=== PATIENT | male | born 1985 | race Caucasian/White ===

== ENCOUNTER → 2019-07-23 10:41 | Outpatient (CLI) | payer OTHER, SELFPAY ==
--- NOTE | 2019-07-23 10:48 | XR_ITS ---
PROCEDURE: XR CHEST 2V CLINICAL HISTORY: BRONCHOPNEUMONIA Bronchopneumonia, cough COMPARISON: No exams were available for comparison FINDINGS: The cardiomediastinal silhouette and pulmonary vascularity are within normal limits. The lungs are clear without infiltrates, suspicious nodules, or pleural effusions. No acute bony abnormalities. IMPRESSION: No acute findings. Dictated by: Pernell Virk MD 07/23/2019 14:43 Electronically signed by Pernell Virk MD in [place] 07/23/2019 14:43
[2019-07-23 11:26] LABS: Basophils % 1.5 % (0.1-2.0); Eosinophils % 1.5 % (0.1-12.0); Hematocrit 45.4 % (42.0-52.0); Hemoglobin 15.1 g/dL (14.1-18.0); Lymphocytes # 0.9 K/mm3 (0.7-4.5); Mean Corpuscular HGB Conc 33.3 g/dL (31.8-35.4); Mean Corpuscular Hemoglobin 28.1 pg (27.0-31.2); Mean Corpuscular Volume 84.4 fl (80-94); Monocytes # 0.2 K/mm3 (0.1-1.0); Monocytes % 8.7 % (1.7-9.3); Neutrophils # 1.5 K/mm3 (1.8-7.8); Neutrophils % 54.3 % (37.0-80.0); Platelet Count 153 K/mm3 (142-424); Red Blood Count 5.38 M/mm3 (4.60-6.20); Red Cell Distribution Width 12.9 % (11.5-17.5); White Blood Count 2.8 K/mm3 (4.8-10.8)
[2019-07-23 12:57] LABS: Alanine Aminotransferase 136 U/L (12-78); Albumin Level 4.1 gm/dL (3.4-5.0); Albumin/Globulin Ratio 1.3 (1.1-1.8); Alkaline Phosphatase 96 U/L (46-116); Anion Gap 12.9 mEq/L (5-15); Aspartate Amino Transferase 75 U/L (15-37); Bilirubin,Total 0.5 mg/dL (0.2-1.0); Blood Urea Nitrogen 16 mg/dL (7-18); Calcium 8.5 mg/dL (8.5-10.1); Carbon Dioxide 29 mmol/L (21.0-32.0); Chloride 103 mmol/L (98-107); Creatinine,Serum 1.22 mg/dL (0.70-1.30); Estimated Glomerular Filt Rate 69 ml/min (>60); GFR (African American) 83 ML/MIN (>60); Globulin 3.2 gm/dl (1.3-3.2); Glucose 87 mg/dL (74-106); Potassium 3.9 mmoL/L (3.5-5.1); Sodium 141 mmol/L (136-145); Total Protein,Serum 7.3 gm/dL (6.4-8.2)
== END ==
PROVIDERS: PCP Internal Medicine Adolescent Medicine; Visit Provider Internal Medicine Adolescent Medicine
DX: J18.0 Bronchopneumonia, unspecified organism (principal); R05 Cough
CPT/HCPCS: 36415; 71046; 80053; 85025; 87040

== ENCOUNTER → 2020-11-11 10:20 | Outpatient (CLI) | payer OTHER, SELFPAY ==
[2020-11-11 14:28] LABS: Alanine Aminotransferase 52 U/L (12-78); Albumin Level 4.7 g/dl (3.5-5.0); Alkaline Phosphatase 59 U/L (38-126); Anion Gap 11.5 mEq/L (5-15); Aspartate Amino Transferase 40 U/L (17-59); Bilirubin,Total 0.5 mg/dl (0.2-1.3); Blood Urea Nitrogen 15 mg/dl (9-20); Calcium 9.6 mg/dl (8.4-10.2); Carbon Dioxide 27 mmol/L (22.0-30.0); Chloride 105 mmol/L (98-107); Cholesterol 210 mg/dl (140-200); Estimated Glomerular Filt Rate 86 ml/min (>60); GFR (African American) 104 ML/MIN (>60); Globulin 2.4 g/dL (1.3-3.2); Glucose 91 mg/dl (74-100); HDL Cholesterol 53 mg/dl (40-60); Potassium 4.5 mmoL/L (3.5-5.1); Sodium 139 mmol/L (136-145); Total Protein,Serum 7.1 g/dl (6.3-8.2); Triglycerides 58 mg/dl (30-150); VLDL Cholesterol 12 mg/dL (0-40)
[2020-11-11 14:30] LABS: Basophils # 0.1 K/mm3 (0-0.2); Basophils % 0.9 % (0.1-2.0); Eosinophils # 0.1 K/mm3 (0.0-0.4); Hemoglobin 14.8 g/dL (14.1-18.0); Lymphocytes # 1.7 K/mm3 (0.7-4.5); Lymphocytes % 32.6 % (10-50); Mean Corpuscular HGB Conc 32.8 g/dL (31.8-35.4); Mean Corpuscular Hemoglobin 28.4 pg (27.0-31.2); Mean Corpuscular Volume 86.4 fl (80-94); Mean Platelet Volume 9.4 fl (7.4-10.4); Monocytes # 0.4 K/mm3 (0.1-1.0); Neutrophils # 2.9 K/mm3 (1.8-7.8); Neutrophils % 57.4 % (37.0-80.0); Platelet Count 201 K/mm3 (142-424); Red Cell Distribution Width 13.1 % (11.5-17.5); White Blood Count 5.1 K/mm3 (4.8-10.8)
[2020-11-11 14:39] LABS: Direct LDL Cholesterol 118.37 mg/dL (100-129)
[2020-11-11 14:46] LABS: 25-OH Vitamin D, Total 36.1 ng/mL (30-100)
[2020-11-11 14:58] LABS: Thyroid Stimulating Hormone 0.78 uIU/mL (0.465-4.68)
[2020-11-11 15:17] LABS: Vitamin B12 563 pg/mL (239-931)
[2020-11-12 08:43] LABS: Testosterone,Total 509 ng/dL (264-916)
== END ==
PROVIDERS: Visit Provider Nurse Practitioner Family
DX: Z00.00 Encounter for general adult medical examination without abnormal findings (principal); R53.83 Other fatigue
CPT/HCPCS: 36415; 80053; 80061; 82306; 82607; 84403; 84443; 85025

== ENCOUNTER → 2020-11-18 13:05 | Outpatient (CLI) | payer OTHER, SELFPAY | PROVIDERS: PCP Internal Medicine Adolescent Medicine; Visit Provider Internal Medicine Adolescent Medicine | DX: G47.30 Sleep apnea, unspecified (principal); R40.0 Somnolence; R51.9 Headache, unspecified; R06.83 Snoring | CPT/HCPCS: G0399 ==

== ENCOUNTER 2021-02-23 19:01 | Emergency (ER) | payer OTHER, SELFPAY ==
[2021-02-23 19:56] VITALS: BP 135/88; PULSE 68; RESP 17; TEMP 36.7; O2SAT 100; BMI 29.7
--- NOTE | 2021-02-23 20:23 | HMH.EDUTC ---
[facility] [place] Clinical Impression: Laceration of left thumb Qualifiers: Encounter type: initial encounter Damage to nail status: without damage Foreign body presence: without foreign body Qualified Code(s): S61.012A - Laceration without foreign body of left thumb without damage to nail, initial encounter Disposition: Home, Self-Care Condition on Discharge: Good Instructions: How to Care for a Laceration After Repair, DI for Laceration Repair Additional Instructions: Keep the wound clean and dry. Keep a dressing on it if you are going to be getting it dirty. Watch the for signs of infection, such as redness, swelling, drainage, fever. etc. Take tylenol or ibuprofen for pain. Follow up with her regular doctor. Return in 10 to 12 days to have the sutures removed. GO TO THE ER FOR ANY WORSENING SYMPTOMS OR CONCERNS. Referrals: Blaine Raya MD [Primary Care Provider] - Time of Disposition: 21:19 Medical Decision Making - Medical Records Medical records reviewed: No: I reviewed the patient's medical records. - [place] Inquiry Pt receiving controlled substance: No Vital Signs: 02/23/21 19:56 02/23/21 20:53 Temperature 98.1 F 98.1 F Temperature Source Oral Pulse Rate 68 Pulse Rate [Left] 68 Respiratory Rate 17 17 Blood Pressure 135/88 Blood Pressure [Right Arm] 135/88 Blood Pressure Mean [Right Arm] 103 02 Sat by Pulse Oximetry 100 Orders (Tests/Meds): ED MEDICATIONS Discontinued Medications Generic Name Dose Route Start Last Admin Trade Name Freq PRN Reason Stop Dose Admin Tetanus/Reduced Diphtheria/Acell Pertussis 0.5 ml 02/23/21 20:25 02/23/21 20:50 Tet/Diphth/Pert-Adult 0.5ml Syringe IM 02/23/21 20:26 0.5 ml .ONCE ONE Administration [facility] [place] - General Stated complaint: lt thumb lac Time Seen by Provider: 02/23/21 20:23 Mode of Arrival: Ambulatory Source of Information: Patient Limitations: No Limitations Description of Symptoms (Recalled from Triage Doc. 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 He has a laceration on the lateral aspect of his left thumb. He is able to move his thumb well. He has good sensation of the distal area of is thumb. - Related Data Allergies Allergy/AdvReac Type Severity Reaction Status Date / Time Penicillins Allergy Unknown Verified 02/23/21 19:59 - Worker's Comp Is this a Worker's Comp case?: No [facility] History - Hepatitis A Screen Drug use history?: No High risk sexual behaviors?: No History of sexually transmitted infection?: No Currently employed?: No Childcare worker?: No Do you have indoor plumbing?: Yes Do you have electricity?: Yes Attestation statement:: This patient has been screened for Hepatitis A risk factors. I have reviewed the patient's past medical history: Yes ROS Obtained: Yes All systems reviewed & no additional complaints - Constitutional Constitutional: Denies chills, Denies fever(s) - Integumentary/Breasts Skin/Breast: Reports as per HPI - Neurologic Neurologic: Denies tingling/numbness/burning sensations Physical Exam - General General appearance: alert, in no apparent distress - Head Head exam: atraumatic, normocephalic, normal inspection - Eye Eye exam: Present: normal appearance, PERRL, EOMI - ENT ENT exam: Present: normal exam, normal oropharynx, mucous membranes moist, TM's normal bilaterally, normal external ear exam - Neck Neck exam: Present: normal inspection, full ROM, trachea midline. Absent: meningismus, lymphadenopathy - Chest Chest inspection: Present: normal inspection, sym
[2021-02-23 20:53] VITALS: BP 135/88; PULSE 68; RESP 17; TEMP 36.7; O2SAT 100
== END 2021-02-23 21:28 | disposition home or self-care (01) ==
PROVIDERS: Emergency Provider Nurse Practitioner Family; PCP Internal Medicine Adolescent Medicine
DX: S61.012A Laceration without foreign body of left thumb without damage to nail, initial encounter (principal); Z23 Encounter for immunization; W26.0XXA Contact with knife, initial encounter; Y92.019 Unspecified place in single-family (private) house as the place of occurrence of the external cause; Z88.0 Allergy status to penicillin
CPT/HCPCS: 12001; 90471; 90715; 99202; G0463

== ENCOUNTER 2021-03-28 10:00 | Emergency (ER) | payer OTHER, SELFPAY ==
[2021-03-28 10:23] VITALS: PULSE 52; RESP 18; TEMP 36.8; O2SAT 97; BMI 28.1
[2021-03-28 10:25] VITALS: BP 121/76; PULSE 52; RESP 18; TEMP 36.8
--- NOTE | 2021-03-28 10:42 | HMH.EDUTC ---
[facility] [place] Clinical Impression: Exposure to COVID-19 virus Disposition: Home, Self-Care Condition on Discharge: Good Instructions: Preventing the Spread of Coronavirus Discharge Instructions Additional Instructions: You have been tested for COVID19. Please continue to isolate. Your test results will be available on patient portal when complete. Referrals: Blaine Raya MD [Primary Care Provider] - Forms: Work/School Release Time of Disposition: 10:52 Medical Decision Making - [place] Inquiry Pt receiving controlled substance: No Vital Signs: 03/28/21 10:23 03/28/21 10:25 Temperature 98.3 F 98.3 F Temperature Source Oral Pulse Rate 52 L Pulse Rate [Left] 52 L Respiratory Rate 18 18 Blood Pressure 121/76 02 Sat by Pulse Oximetry 97 Orders (Tests/Meds): ORDERS Category Date Time Status Covid-19 Nasal PCR ([facility]) Routine Lab 03/28/21 10:20 Received [facility] [place] - General Stated complaint: covid test/symptoms Time Seen by Provider: 03/28/21 10:43 Mode of Arrival: Ambulatory Source of Information: Patient Limitations: No Limitations Description of Symptoms (Recalled from Triage Doc. by RN): pt c/o fever and body aches. pts son is positive for covid. HEENT Symptoms (Recalled from RN notes): No Resp Symptoms (Recalled from RN notes): No Skin Symptoms (Recalled from RN notes): No MS Symptoms (Recalled from RN notes): No Functional Status (Recalled from RN notes): fever hx and body aches - History of Present Illness Provider Complaint: Patient has had fever, body aches, cough X 2-3 days. Son tested positive for COVID 6 days ago. Onset (ago): day(s) (3) Relieving factors: none Exacerbating factors: none Associated symptoms: cough, fever/chills Treatments prior to arrival: none - Related Data Allergies Allergy/AdvReac Type Severity Reaction Status Date / Time Penicillins Allergy Unknown Verified 02/23/21 19:59 - Worker's Comp Is this a Worker's Comp case?: No [facility] History - Hepatitis A Screen Drug use history?: No High risk sexual behaviors?: No History of sexually transmitted infection?: No Currently employed?: No Childcare worker?: No Do you have indoor plumbing?: Yes Do you have electricity?: Yes Attestation statement:: This patient has been screened for Hepatitis A risk factors. I have reviewed the patient's past medical history: Yes ROS Obtained: Yes All systems reviewed & no additional complaints - Constitutional Constitutional: Reports body ache, Reports chills, Reports fever(s) - Respiratory Respiratory: Reports cough Physical Exam - General General appearance: alert, in no apparent distress - Head Head exam: normocephalic - Eye Eye exam: Present: PERRL - ENT ENT exam: Present: normal oropharynx, TM's normal bilaterally - Neck Neck exam: Present: normal inspection. Absent: lymphadenopathy - Chest Chest inspection: Present: normal inspection, symmetric chest wall rise - Respiratory Respiratory exam: Present: normal lung sounds bilaterally - Cardiovascular Cardiovascular exam: Present: regular rate, normal rhythm - Neurological Exam Neurological exam: Present: alert, oriented X3 - Psychiatric Psychiatric exam: Present: normal affect, normal mood - Skin Skin exam: Present: warm, dry, intact
--- NOTE | 2021-03-29 09:34 | PC.NURSE ---
Notified pt of positive COVID results
== END 2021-03-28 10:59 | disposition home or self-care (01) ==
PROVIDERS: Emergency Provider Physician Assistant; PCP Internal Medicine Adolescent Medicine
DX: U07.1 COVID-19 (principal); Z88.0 Allergy status to penicillin
CPT/HCPCS: 99202; C9803; G0463; U0003; U0005

== ENCOUNTER 2024-11-09 14:26 | Emergency (ER) | payer OTHER, SELFPAY ==
[2024-11-09 14:32] VITALS: BP 146/100; PULSE 77; O2SAT 99
[2024-11-09 14:34] VITALS: BP 146/100; PULSE 88; RESP 18; TEMP 36.6; O2SAT 99; BMI 30.5
[2024-11-09] MEDS: ACETAMINOPHEN 500MG TAB 1000 MG PO (14:50)
[2024-11-09] MEDS: IBUPROFEN 600 MG TABLET PO (14:50)
[2024-11-09 15:00] VITALS: BP 142/93; PULSE 82; O2SAT 96
--- NOTE | 2024-11-09 15:21 | ED_ITS ---
<Statement entered by Alta Ramirez MD - 11/09/24 15:31> I was consulted by the LIAM, and we discussed the complexity of the problems being addressed. I approved the treatment and management plan for this patient's care in the emergency department, thus performing a substantive portion of the medical decision making. Alta Ramirez MD, JELANI, FACEP Discharge Plan Disposition Patient Disposition: Home, Self-Care Condition: Good Referrals Follow up/Referrals: Provider,Referral, MD [Primary Care Provider] - See instructions Activity Restrictions/Add. Instructions Additional Instructions/Restrictions: Have sutures removed in 5 to 7 days. Keep clean with soap and water. If any concerns or questions please return to the ED or PCP. Clinical Impressions Clinical Impression: Laceration Instructions Patient Instructions: DI for Laceration Repair Print Language Print Language: Setswana Discharge ED Provider: Alta Ramirez General Adult HPI General Chief complaint: Wound/Laceration Stated complaint: AO 11/09/24 01:45 Busted Lip Time Seen by Provider: 11/09/24 14:48 Mode of Arrival: Ambulatory Source of Information: Patient Description of Symptoms (Recalled from ER Triage Doc. by RN): FALL FROM LADDER, LACERATION TO UPPER LIP. History of Present Illness HPI narrative: This is a 39-year-old male presents to the ED today for complaint of lip laceration after falling into his ladder. He is up-to-date on tetanus. He had it within 3 years. He has no other injuries at this time. Related Data Allergies Allergy/AdvReac Type Severity Reaction Status Date / Time Penicillins Allergy Unknown Verified 02/23/21 19:59 [facility] Disclaimer: The information contained in this section may have been updated after the patient was seen, as this information can be updated by other users. Social History Smoking Status: Never smoker alcohol intake: former current occupational status: other Travel in the last 8 weeks: Inside the [place] ROS Obtained: Yes Systems reviewed as appropriate & no additional complaints except as documented Constitutional Constitutional: Reports as per HPI Physical Exam General General appearance: alert and in no apparent distress Head Head exam: atraumatic Eye Eye exam: Present normal appearance ENT ENT exam: Present other (upper lip with laceration, does not go through and through.does cross the vermilion border ) Neck Neck exam: Present normal inspection Respiratory Respiratory exam: Present normal lung sounds bilaterally Cardiovascular Cardiovascular exam: Present regular rate Neurological Exam Neurological exam: Present alert and oriented X3 Skin Skin exam: Present warm and other (laceration to upper lip) Medical Decision Making Medical Records Screening: Per USPSTF and CDC recommendations, given the prevalence of disease in our region, it is our hospital?s policy to screen for HIV and viral Hepatitis for all patients aged 18 and over and those with ongoing risk factors. [place] Inquiry Pt receiving controlled substance: No [place] was queried for this patient: No Vital Signs: 11/09/24 14:32 11/09/24 14:34 11/09/24 15:00 Temperature 97.9 F Temperature Source Oral Pulse Rate 77 82 Pulse Rate [Radial] 88 Respiratory Rate 18 Blood Pressure 146/100 H 142/93 H Blood Pressure [Right Arm] 146/100 H Blood Pressure Mean [Right Arm] 115 Blood Pressure Source Blood Pressure Source [Right Arm] Automatic Cuff Blood Pressure Position Blood Pressure Position [Right Arm] Sitting 02 Sat by Pulse Oximetry 99 99 96 Oxygen Delivery Method Room Air Room Air Room Air 11/09/24 15:26 Temperature 98.0 F Temperature Source Oral Pulse Rate 67 Pulse Rate [Radial] Respiratory Rate 18 Blood Pressure 142/93 H Blood Pressure [Right Arm] Blood Pressure Mean [Right Arm] Blood Pressure Source Automatic Cuff Blood Pressure Source [Right Arm] Blood Pressure Position Sitting Blood Pressure Position [Right Arm] 02 Sat by Pulse Oximetry Oxygen Delivery Method Room Air Orders (Tests/Meds): ED MEDICATIONS Discontinued Medications Generic Name Dose Route Start Last Admin Trade Name Freq PRN Reason Stop Dose Admin Acetaminophen 1,000 mg 11/09/24 14:49 11/09/24 14:50 Acetaminophen 500mg Tab PO 11/09/24 14:50 1,000 mg ONCE ONE Administration Ibuprofen 600 mg 11/09/24 14:49 11/09/24 14:50 Ibuprofen 600 Mg Tablet PO 11/09/24 14:50 600 mg ONCE ONE Administration Lidocaine/Epinephrine 10 ml 11/09/24 14:47 Lidocaine 1% W/Epi 1:100,000 20ml Vial SQ 11/09/24 14:48 ONCE ONE ORDERS Category Date Time Status HIV Combo Stat Lab 11/09/24 14:39 Ordered Hepatitis C Ab Qual. W/ RFX Stat Lab 11/09/24 14:39 Ordered Medical Decision Narrative: Insert review patient is a 39-year-old male presenting to the emergency department for evaluation of lip laceration. He says his ladder dropped and hit him in the lip causing the laceration. He is up-to-date on his tetanus.. Patient is hemodynamically stable and nontoxic-appearing upon arrival, afebrile. Differential diagnosis includes lip laceration. Placed 3 sutures in his lip. He tolerated well. We have talked about suture removal and surgical care. Patient was safe for discharge home Procedures Laceration Laceration 1: Site: lip Side (If applicable): left Size (cm): 2 Description: involves jitendra border Depth: simple, single layer Local Anesthetic: lidocaine 2% Amount of anesthesia used (mL): 2 Pre-repair: irrigated extensively Size (cm): 5-0 Number of sutures: 3 Technique: simple, interrupted Critical Care Critical Care Time Critical Care Time: No
[2024-11-09 15:26] VITALS: BP 142/93; PULSE 67; RESP 18; TEMP 36.7; O2SAT 98
== END 2024-11-09 15:27 | disposition home or self-care (01) ==
PROVIDERS: Emergency Provider Student in an Organized Health Care Education/Training Program
DX: S01.511A Laceration without foreign body of lip, initial encounter (principal); W20.8XXA Other cause of strike by thrown, projected or falling object, initial encounter
CPT/HCPCS: 12011; 99283